=== PATIENT | female | born 2000 | race Two or more races ===

== ENCOUNTER 2024-02-16 08:43 | Emergency (ER) | payer OTHER ==
[~2024-02-16] VITALS: Ht 175.3 cm; Wt 49.9 kg
[2024-02-16 09:35] VITALS: BP 114/84; PULSE 64; RESP 18; TEMP 98.6; O2SAT 98
== END 2024-02-16 09:37 | disposition home or self-care (01) ==
LOC: ER 08:43
DX: T16.1XXA Foreign body in right ear, initial encounter (principal); W44.9XXA Unspecified foreign body entering into or through a natural orifice, initial encounter; Y93.89 Activity, other specified; Y92.89 Other specified places as the place of occurrence of the external cause; Y99.8 Other external cause status